=== PATIENT | female | born 1985 | race Caucasian/White ===

== ENCOUNTER 2019-04-28 03:26 | Inpatient (IN) | payer BC ==
[2019-04-28] MEDS ORDERED: Ondansetron PF 4 MG/2 ML Vial IVP PRN ×2 (04:34→23:39)
[2019-04-28] MEDS ORDERED: Butorphanol Tartrate 1 MG/ML VIAL SLOW IVP PRN (04:34)
[2019-04-28] MEDS ORDERED: Ibuprofen 800 MG TAB PO PRN (04:34)
[2019-04-28] MEDS ORDERED: Lidocaine 1% (PF) 30 ML VIAL SC PRN (04:34)
[2019-04-28] MEDS ORDERED: hydrALAZINE 20 MG/ML VIAL SLOW IVP PRN (04:34)
[2019-04-28] MEDS ORDERED: HYDROcodone/Acetaminophen 5/325 mg Tablet PO PRN ×2 (04:34)
[2019-04-28] MEDS ORDERED: Promethazine HCl 25 MG/ML VIAL IM PRN ×2 (04:34→23:39)
[2019-04-28] MEDS ORDERED: Methylergonovine 0.2 MG/ML VIAL IM PRN (04:34)
[2019-04-28] MEDS ORDERED: Misoprostol 200 MCG TAB PR PRN (04:34)
--- NOTE | 2019-04-28 04:44 | PDOC.LDHP ---
Labor and Delivery H&P Chief complaint: contractions HPI: Jennifer Weir is a 33 y.o at 40 weeks gestation who started having contractions on 04/27/19 irregularly around 1900. She has been laboring at home and resting. Her contractions picked up to every 3-4 minutes at midnight. She denies ROM and VB. the baby is moving normally Current gestational age (weeks): 40 Due date: 04/28/19 Dating criteria: last menstrual period Grav: 3 Para: 0 Current complications: none Abnormal US findings: No Current medications: pre-juani vitamins Previous surgical history: other (Arm surgery Right ankle) Allergies/Adverse Reactions: Allergies Allergy/AdvReac Type Severity Reaction Status Date / Time No Known Allergies Allergy Verified 04/28/19 04:25 Social history: none - Physical Exam Vital signs reviewed and normal: yes General: breathing through contractions Lungs: nonlabored breathing Abdomen: gravid FHT: category 1 - Vaginal Exam cm dilated: 5 Effacement: 90% Station: -2 - OB Labs Blood type: O RH: positive Antibody Screen: negative HIV: negative RPR: negative HEPSAg: negative 1 hour GCT: negative GBS: negative - Assessment L&D Assessment: term patient in labor - Plan Plan: admit to L&D, labor augmentation if indicated, informed consent obtained -: Low intervention protocols, intermittent monitoring,
[2019-04-28 04:59] VITALS: BMI 31.4
[2019-04-28 06:06] LABS: Hemoglobin 12.8 g/dL (12.0-16.0); Mean Corpuscular HGB CONC 33.6 g/dL (32.0-36.0); Mean Corpuscular Hemoglobin 30.4 pg (27.0-31.0); Mean Corpuscular Volume 90.4 fL (78.0-98.0); Mean Platelet Volume 8.7 fL (7.4-10.4); Platelet Count 188 thou/uL (130-400); RBC Distribution Width 11.8 % (11.5-14.5); White Blood Cell (WBC) Count 10.7 thou/uL (4.8-10.8)
[2019-04-28 06:44] LABS: HBSAg Index 0.21 S/CO (0-0.99); Hep B Surf Ag Non-Reactive S/CO (NonReactive)
[2019-04-28 06:46] LABS: Syphilis Antibody Nonreactive (Nonreactive); Syphilis Antibody Index 0.04 S/CO (<1.00 Non-Reactive)
[2019-04-28] MEDS ORDERED: FLU VACC QS2019-20(6MOS UP)/PF 60 MCG/0.5 ML SYRINGE IM ONE (09:00)
[2019-04-28] MEDS ORDERED: Bupivacaine 0.25% 10 ML VIAL ONE (09:36)
--- NOTE | 2019-04-28 17:11 | PDOC.LDPN ---
Labor & Delivery Progress Note - Subjective Subjective: painful contractions - Objective Vital signs reviewed and normal: yes General: breathing through contractions Uterine fundus: non tender Dilation: 7 Effacement: 100% Station: -1 FHT: category 1 AROM: clear fluid - Assessment (1) 40 weeks gestation of Code(s): Z3A.40 - 40 WEEKS GESTATION OF Current Visit: Yes Status : Acute Plan: labor augmentation (with AROM)
[2019-04-28] MEDS ORDERED: Fentanyl 4 mcg/Bup 0.1% Cadd 100 ML ONE (22:52)
[2019-04-28] MEDS ORDERED: NS w/ Oxytocin 10 units 500 ML ONE (22:53)
[2019-04-28] MEDS: Lactated Ringer's 1,000 ML IV PRN (23:00)
[2019-04-28] MEDS ORDERED: Naloxone HCl 0.4 mg/ml Vial IVP PRN ×2 (23:39)
[2019-04-28] MEDS ORDERED: ePHEDrine/0.9% NaCl/PF SYRINGE 50 mg/10 ml SLOW IVP PRN (23:39)
[2019-04-28] MEDS ORDERED: Acetaminophen 325 MG TAB PO PRN (23:39)
[2019-04-28] MEDS ORDERED: diphenhydrAMINE 50 MG/ML VIAL IVP PRN (23:39)
[2019-04-28] MEDS ORDERED: Lactated Ringer's 500 ML IV PRN (23:39)
[2019-04-28] MEDS ORDERED: Communication Order-Pharmacy FS SCH (23:45)
[2019-04-28] MEDS ORDERED: Fentanyl 4 mcg/Bupivacaine 0.1% Cassette 100 ML EPIDURAL SCH (23:45)
[2019-04-29] MEDS: Lactated Ringer's 1,000 ML IV PRN (00:52)
--- NOTE | 2019-04-29 00:52 | PDOC.LDPN ---
Labor & Delivery Progress Note - Subjective Subjective: painful contractions - Objective Vital signs reviewed and normal: yes General: breathing through contractions Uterine fundus: non tender Dilation: 8 Effacement: 100% Station: 1+ FHT: category 1 IUPC placed: yes - Assessment (1) 40 weeks gestation of Code(s): Z3A.40 - 40 WEEKS GESTATION OF Current Visit: Yes Status : Acute Plan: labor augmentation, pitocin for augmentation
[2019-04-29] MEDS: NS / Oxytocin 40 units/1000ml 1,000 ML IV PRN ×2 (05:45→07:16)
--- NOTE | 2019-04-29 06:06 | PDOC.OPDEL ---
OB Operative/Delivery Note Delivery Dr/Surgeon: Maurizio Pollard Pre-Delivery Diagnosis: active labor Procedure/Post Delivery Dx: spontaneous vaginal delivery Weeks gestation: 40 Anesthesia: epidural - Findings A Sex: female Weight: 9 lb 6 oz - 1 min: 6 - 5 min: 9 - Additional Findings/Plan Placenta delivered: spontaneous Repaired Obstetrical Laceration: vaginal Estimated blood loss: 350mL Compilations/Other Findings: Nuchal cord reduced. Post delivery plan: routine recovery
[2019-04-29] MEDS ORDERED: HYDROcodone/Acetaminophen 5/325 mg Tablet PO PRN ×2 (14:38)
[2019-04-29] MEDS ORDERED: Adacel (T-DAP) 0.5 ML SYRINGE IM ONE (14:38)
[2019-04-29] MEDS ORDERED: Benzocaine-Menthol 82.5 ML CAN TOP PRN (14:38)
[2019-04-29] MEDS ORDERED: NS / Oxytocin 40 units/1000ml 1,000 ML IV SCH (14:38)
[2019-04-29] MEDS ORDERED: Methylergonovine 0.2 MG/ML VIAL IM PRN (14:38)
[2019-04-29] MEDS ORDERED: Misoprostol 200 MCG TAB VAG PRN (14:38)
[2019-04-29] MEDS ORDERED: Milk Of Magnesia 30 ML UDCUP PO PRN (14:38)
[2019-04-29] MEDS ORDERED: hydrALAZINE 20 MG/ML VIAL SLOW IVP PRN (14:38)
[2019-04-29] MEDS ORDERED: Bisacodyl 10 MG SUPP PR PRN (14:38)
[2019-04-29] MEDS: Ibuprofen 800 MG TAB PO SCH (16:56)
[2019-04-29] MEDS: Prenatal Vitamin 1 TAB PO SCH (17:09)
[2019-04-29] MEDS: Docusate Calcium (SURFAK) 240 MG CAP PO SCH ×2 (18:06→21:52)
[2019-04-29] MEDS: Ferrous Sulfate 325 MG TAB PO SCH (18:06)
[2019-04-30] MEDS: Ibuprofen 800 MG TAB PO SCH ×3 (00:42→17:58)
[2019-04-30] MEDS: Ferrous Sulfate 325 MG TAB PO SCH ×2 (09:15→15:48)
[2019-04-30] MEDS: Prenatal Vitamin 1 TAB PO SCH (09:25)
[2019-04-30] MEDS: Docusate Calcium (SURFAK) 240 MG CAP PO SCH ×2 (09:25→21:20)
[2019-05-01] MEDS: Ibuprofen 800 MG TAB PO SCH ×2 (01:50→09:38)
--- NOTE | 2019-05-01 07:31 | PDOC.PP ---
Post Progress Note Post Day #: 1 Subjective: cy is doing well. More sore than she expected to be, but overall well. She showered. Her is under audi lights PO intake tolerated: yes Flatus: yes Ambulation: yes Vital Signs (12 hours) Temp Pulse Resp BP Pulse Ox 04/30/19 20:10 97 04/30/19 19:50 98.8 F 81 12 109/66 97 Weight Weight 207 lb - Physical Examination General: NAD Respiratory: non-labored breathing Abdominal: lochia (minimal), no distention Skin: no rash Neurological: no gross focal deficits Psychiatric: A&Ox3, normal affect Result Diagrams: 04/28/19 05:54 Additional Labs: Post Labs Blood Type O POSITIVE 04/28/19 06:31 Hep Bs Antigen Non-Reactive S/CO (NonReactive) 04/28/19 05:53 (1) 40 weeks gestation of Code(s): Z3A.40 - 40 WEEKS GESTATION OF Status: Acute (2) (spontaneous vaginal delivery) Code(s): O80 - ENCOUNTER FOR FULL-TERM UNCOMPLICATED DELIVERY Status: Acute - Assessment/Plan A: G1 now p1 s/p at 40 weeks gestation with NML PPD #1 exam P: Routine care discharge home tomorrow
--- NOTE | 2019-05-01 07:40 | PDOC.PP ---
Post Progress Note Post Day #: 2 Subjective: No concerns. Breast feeding. Minimal pain and lochia. receiving phototherapy. PO intake tolerated: yes Flatus: yes Ambulation: yes Vital Signs (12 hours) Temp Pulse Resp BP Pulse Ox 04/30/19 20:10 97 04/30/19 19:50 98.8 F 81 12 109/66 97 Weight Weight 207 lb - Physical Examination General: NAD Cardiovascular: RRR Respiratory: non-labored breathing Abdominal: no distention, appropriately TTP Fundus firm & at: below umbillicus Extremities: negative homans (B) Neurological: no gross focal deficits Psychiatric: A&Ox3, normal affect Result Diagrams: 04/28/19 05:54 Additional Labs: Post Labs Blood Type O POSITIVE 04/28/19 06:31 Hep Bs Antigen Non-Reactive S/CO (NonReactive) 04/28/19 05:53 (1) (spontaneous vaginal delivery) Code(s): O80 - ENCOUNTER FOR FULL-TERM UNCOMPLICATED DELIVERY Status: Acute - Assessment/Plan PPD2 VSSAF Plan for d/c today with if s/p phototherapy.
[2019-05-01 08:32] VITALS: BP 111/69; TEMP 98.7
[2019-05-01] MEDS: Ferrous Sulfate 325 MG TAB PO SCH (08:47)
[2019-05-01] MEDS: Prenatal Vitamin 1 TAB PO SCH (09:38)
[2019-05-01] MEDS: Docusate Calcium (SURFAK) 240 MG CAP PO SCH (09:38)
== END 2019-05-01 14:20 | disposition home or self-care (01) | DRG 807 ==
LOC: L&D/OP 03:26 → L&D 04:34 → 3SW 04-29 16:44
PROVIDERS: ADMIT Student in an Organized Health Care Education/Training Program; ATTEND Student in an Organized Health Care Education/Training Program
PROC: 10H07YZ Insertion of Other Device into Products of Conception, Via Natural or Artificial Opening (ICD-10-PCS; principal; 2019-04-28)
PROC: 10E0XZZ Delivery of Products of Conception, External Approach (ICD-10-PCS; 2019-04-28)
DX: O69.81X0 Labor and delivery complicated by cord around neck, without compression, not applicable or unspecified (principal); Z37.0 Single live birth; Z3A.40 40 weeks gestation of pregnancy; O70.0 First degree perineal laceration during delivery
CPT/HCPCS: 36415; 51702; 85027; 86780; 86850; 86900; 86901; 87340; 99285; J2590; S0020

== ENCOUNTER 2020-02-04 10:50 | Outpatient (CLI) | payer BC ==
--- NOTE | 2020-02-04 12:48 | ULT ---
ULTRASOUND RIGHT BREAST: INDICATION: Question palpable abnormality retroareolar region. The patient noticed the palpable while breast fee ding. The palpable abnormality has resolved. The patient stopped breast feeding 3 weeks ago. No sonographic abnormality identified in the area of palpable concern in the retroareolar region righ t breast. IMPRESSION: Ultrasound findings of BIRADS 1: Negative. POS: OFF
--- NOTE | 2020-02-04 12:51 | ULT ---
ULTRASOUND LEFT BREAST: INDICATION: Palpable abnormality at 3-4 o'clock. Noted while breast feeding 3 weeks ago. FINDINGS: No sonographic abnormality identified. IMPRESSION: Ultrasound findings of BIRADS1: Negative. POS: OFF
== END 2020-02-04 10:51 | disposition home or self-care (01) ==
LOC: BICULT 10:50
PROVIDERS: ATTEND Advanced Practice Midwife
DX: N63.12 Unspecified lump in the right breast, upper inner quadrant (principal); N63.14 Unspecified lump in the right breast, lower inner quadrant